=== PATIENT | female | born 1945 | race Caucasian/White ===

== ENCOUNTER → 2016-10-02 | Outpatient (CLI) | payer BC ==
[~2016-10-02] MED LIST: CETI10TA84 PO; CODCAP PO; COLE1TAB5 PO; FERR1TAB61 PO; FLNIN/ NAE; IMD/2 PO; MULT-506 PO; NAPR-1169 PO; OFLO0.3S OP; OFLO0.3S4 OPR; PRAV20TA PO; PRED1SUS3; PRED1SUS3 OPR
--- NOTE | 2016-10-02 16:11 | MAMMOGRAPHY REPORT ---
BILATERAL DIGITAL SCREENING MAMMOGRAM WITH CAD: 10/02/2016 CLINICAL HISTORY: Routine screening. Patient has no complaints. TECHNIQUE: Current study was also evaluated with a Computer Aided Detection (CAD) system. Bilatera l CC and MLO views were obtained. COMPARISON: Comparison is made to exams dated: 10/01/2015 mammogram, 09/29/2014 mammogram, 09/12/2013 mammogram, 09/09/2012 mammogram, 09/08/2011 mammogram, and 09/06/2010 mammogram - [facility]. BREAST COMPOSITION: There are scattered areas of fibroglandular density in both breasts. FINDINGS: No suspicious masses, calcifications, or areas of architectural distortion are noted in e ither breast. There has been no significant interval change compared to prior exams. Small bilatera l benign-appearing masses are not significantly changed. IMPRESSION: ACR BI-RADS CATEGORY 2: BENIGN There is no mammographic evidence of malignancy. A 1 year screening mammogram is recommended. The p atient will receive written notification of the results. Approximately 10% of breast cancers are not detected with mammography. A negative mammographic repor t should not delay biopsy if a clinically suggestive mass is present. Deepthi Arenas M.D. /:10/02/2016 13:23:31 Product Builder: Mariela MCKEON(Radha)(Petrona)(WILLEM), [facility] letter sent: Normal 1/2 BI-RADS Code: ACR BI-RADS Category 2: Benign
== END | disposition home or self-care (01) ==
LOC: C.MAMM 08:55
PROVIDERS: ATTEND Obstetrics & Gynecology
DX: Z12.31 Encounter for screening mammogram for malignant neoplasm of breast (principal)

== ENCOUNTER 2016-11-25 14:27 | Emergency (ER) | payer BC ==
[~2016-11-25] VITALS: Ht 161.3 cm; Wt 80.2 kg
[~2016-11-25 14:27] MED LIST changes: -COLE1TAB5 PO; -FLNIN/ NAE; -IMD/2 PO
[2016-11-25 14:30] VITALS: Ht 161.3 cm; Wt 80.2 kg
[2016-11-25 15:18] LABS: BASO % 0.3 %; BASO ABS # 0.03 K/uL (0-0.2); COMPLETE YES; EOS % 6.8 %; HEMATOCRIT 43.6 % (37-47); IG% 0.3 %; LYMPH % 13.1 %; LYMPH ABS # 1.52 K/uL (1.2-3.4); MEAN CELL VOLUME 89.7 fL (80-100); MEAN CORPUSCULAR HEMOGLOBIN 30.9 pg (25-34); MEAN CORPUSCULAR HGB CONC 34.4 g/dl (32-36); MEAN PLATELET VOLUME 10.4 fL (7.4-10.4); MONO % 7.4 %; NEUT % 72.1 %; PLATELET COUNT 312 K/uL (130-400); RED BLOOD COUNT 4.86 M/uL (4.2-5.4); WHITE BLOOD COUNT 11.56 K/uL (4.8-10.8)
[2016-11-25 15:27] LABS: ALT/SGPT 21 U/L (12-78); BLOOD UREA NITROGEN 20 mg/dl (7-18); CALCIUM 9.9 mg/dl (8.5-10.1); CARBON DIOXIDE 26 mmol/L (21-32); CHLORIDE 106 mmol/L (98-107); GLUCOSE 90 mg/dl (70-99); POTASSIUM 4.4 mmol/L (3.5-5.1); PROTHROMBIN TIME (PATIENT) 10.7 SECONDS (9.0-12.0); SODIUM 141 mmol/L (136-145)
[2016-11-25 15:30] LABS: ALKALINE PHOSPHATASE 96 U/L (45-117); AST/SGOT 17 U/L (15-37)
[2016-11-25] MEDS ORDERED: FLNIN/ NAE (15:39)
[2016-11-25] MEDS ORDERED: COLE1TAB5 PO (15:39)
[2016-11-25] MEDS ORDERED: IMD/2 PO (15:41)
--- NOTE | 2016-11-25 17:50 | EMERGENCY ROOM VISIT NOTE ---
ED Visit Note First contact with patient: 14:38 Patient was seen by our PA/SHEEP SORTER. I was involved in the patient's care and did evaluate the patient myself. I was involved in the care throughout the ER stay. The patient does have a mild leukocytosis and complains of some rectal bleeding. A CT of the abdomen has been ordered for the possibility of colitis or diverticulitis, this result is pending. Her disposition is not yet set.
[2016-11-25] MEDS ORDERED: OPTIRAY 320 IV PRN (18:15)
--- NOTE | 2016-11-25 18:41 | DIAGNOSTIC IMAGING REPORT ---
ABDOMEN AND PELVIS CT WITH IV AND ORAL CONTRAST CT DOSE: 539.63 mGy.cm HISTORY: Pain. Diarrhea. ongoing diarrhea; bloody stools today TECHNIQUE: Multiaxial CT images of the abdomen and pelvis were performed following the use of intravenous and oral contrast. COMPARISON STUDY: None. FINDINGS: Mild dependent bibasilar atelectasis. Several scattered hepatic cysts. Considerable cortical scarring right kidney. Several small right renal cyst. Several nonobstructing renal calcifications. Right renal extrarenal pelvis. This is in the absence of hydronephrosis. Ureters show no evidence for distention. Bowel pattern within the abdomen and pelvis is unremarkable. Appendix is normal. IMPRESSION: No acute process of the abdomen or pelvis. Cortical scarring right kidney with several right hepatic cysts. No acute process the abdomen or pelvis. Electronically signed by: Gareth Sherwood M.D. 11/25/2016 6:40 PM Dictated Date/Time: 11/25/2016 6:34 PM
[2016-11-25 19:22] VITALS: BP 150/72; PULSE 66; O2SAT 96
--- NOTE | 2016-11-28 06:35 | EMERGENCY ROOM VISIT NOTE ---
ED Visit Note First contact with patient: 14:38 Chief Complaint: Rectal bleeding. History of Present Illness: Ms. Chino is a 71-year-old white female who ambulates into the ED complaining of rectal bleeding. She was referred into her venetian blind worker because of her rectal bleeding. Historically patient reports since August, approximately 3 months ago, she has been having ongoing diarrhea. She has seen her venetian blind worker was performed multiple tests including stool cultures and colonoscopy, but has not identified the cause and she reports multiple medications have been attempted to control her stools but has been unsuccessful. Patient reports she woke up this morning and went to the bathroom and had a large episode of bright red stools. She then went approximately 3 hours later and had an additional episode. She called her venetian blind worker who encouraged her to come to the ED. Since that time she's had a no additional bowel movements. Additionally she reports she has some mild cramping pain right before her bowel movement which resolves by the time her bowel movement is over. She has no additional symptoms. She denies fevers, chills, sweats, skin eruptions, skin color changes, lightheadedness, dizziness, chest pain, shortness of breath, easy bleeding, unusual bleeding, bleeding going brushing teeth, hematuria, bleeding disorders, blood thinners, back pain, flank pain. Review of Systems: As noted above in history of present illness. At least body systems were reviewed and found to be negative as noted above. Past Medical History: As previously noted and osteoarthritis, status post cataract surgery. Current Medications: Medications Dose Route/Sig Max Daily Dose Days Date Category Imodium (Loperamide HCl) 2 Mg Cap 2 Mg PO PRN UD 11/25/16 Reported Fluticasone Propionate 120 Sprays/6000 Mcg Inha 1 [place] JYOTI PRN UD 11/25/16 Reported Colestipol Hcl 1 Gm Tab 1 Gm PO QID PRN 11/25/16 Reported Iron (Ferrous Sulfate) 45 Mg Tab 1 Tab PO QAM 10/15/15 Reported Multivitamin (Multivitamins) Tab 1 Tab PO QAM 10/15/15 Reported Cod Liver Oil 1 Cap Cap 1 Cap PO QAM 10/15/15 Reported Zyrtec (Cetirizine HCl) 10 Mg Tab 10 Mg PO QAM 10/15/15 Reported Naprosyn (Naproxen) 500 Mg Tab 500 Mg PO BID 10/15/15 Reported Allergies to Medications: Pravastatin. Social History: Patient is currently retired; she lives with her and feels safe in her home environment; she denies tobacco and alcohol use Physical Examination: Vital Signs: Date Time Temp Pulse Resp B/P Pulse Ox O2 Delivery O2 Flow Rate FiO2 11/25/16 19:22 66 18 150/72 96 Room Air 11/25/16 17:56 58 15 150/74 96 Room Air 11/25/16 16:29 64 11/25/16 16:13 64 18 149/82 97 Room Air 11/25/16 14:48 82 18 141/90 96 Room Air GENERAL: 71-year-old female in no acute distress, nontoxic-appearing, afebrile and hemodynamically stable. NEUROLOGICAL: Awake, alert and oriented to person, place and time. Answering questions appropriately and following commands. Normal gait. Good hand eye coordination. No focal motor sensory deficits. SKIN: Warm, dry and pink. No soft tissue eruptions or trauma noted. HEENT: Atraumatic and normocephalic. PERRL. Sclera white and conjunctiva pink. No drainage from naris. Oral cavity moist and pink. Pharynx is nonerythematous or edematous. Speech normal. No lymphadenopathy. Trachea midline. No jugular venous distention. BACK: No tenderness over the bony spine. No CVA tenderness. THORAX: Lungs sounds are clear to auscultation and equal bilaterally with symmetrical chest wall. No wheezing, rales or rhonchi. No crepitus, tenderness , subcutaneous air or deformities noted. HEART: Regular rate and rhythm. No gallops, rubs or murmurs are appreciated. ABDOMEN: Flat, soft and nontender. Positive bowel sounds in all quadrants. No guarding, rigidity or organomegaly. RECTAL: 2 hemorrhoids at the 10 and 4 o'clock position without bleeding. Normal rectal tone. No palpable rectal masses. Grossly positive for bright red blood. Guaiac positive. EXTREMITIES: Moves all extremities well on command and with purpose. All distal neurovascular statuses are intact and equal bilaterally. No calf tenderness or cords. ED Course: Patient is assessed as noted above. Laboratory Testing: Test 11/25/16 14:55 Range/Units White Blood Count 11.56 4.8-10.8 K/uL Red Blood Count 4.86 4.2-5.4 M/uL Hemoglobin 15.0 12.0-16.0 g/dL Hematocrit 43.6 37-47 % Mean Corpuscular Volume 89.7 80-100 fL Mean Corpuscular Hemoglobin 30.9 25-34 pg Mean Corpuscular Hemoglobin Concent 34.4 32-36 g/dl Platelet Count 312 130-400 K/uL Mean Platelet Volume 10.4 7.4-10.4 fL Neutrophils (%) (Auto) 72.1 % Lymphocytes (%) (Auto) 13.1 % Monocytes (%) (Auto) 7.4 % Eosinophils (%) (Auto) 6.8 % Basophils (%) (Auto) 0.3 % Neutrophils # (Auto) 8.34 1.4-6.5 K/uL Lymphocytes # (Auto) 1.52 1.2-3.4 K/uL Monocytes # (Auto) 0.85 0.11-0.59 K/uL Eosinophils # (Auto) 0.79 0-0.5 K/uL Basophils # (Auto) 0.03 0-0.2 K/uL RDW Standard Deviation 41.8 36.4-46.3 fL RDW Coefficient of Variation 12.8 11.5-14.5 % Immature Granulocyte % (Auto) 0.3 % Immature Granulocyte # (Auto) 0.03 0.00-0.02 K/uL Prothrombin Time 10.7 9.0-12.0 SECONDS Prothromb Time International Ratio 1.0 0.9-1.1 Activated Partial Thromboplast Time 25.7 21.0-31.0 SECONDS Partial Thromboplastin Ratio 1.0 Sodium Level 141 136-145 mmol/L Potassium Level 4.4 3.5-5.1 mmol/L Chloride Level 106 98-107 mmol/L Carbon Dioxide Level 26 21-32 mmol/L Anion Gap 9.0 3-11 mmol/L Blood Urea Nitrogen 20 7-18 mg/dl Creatinine 1.10 0.60-1.20 mg/dl Est Creatinine Clear Calc Drug Dose 48.9 ml/min Estimated GFR () 59.3 Estimated GFR (Non- 51.2 BUN/Creatinine Ratio 18.0 10-20 Random Glucose 90 70-99 mg/dl Calcium Level 9.9 8.5-10.1 mg/dl Total Bilirubin 0.3 0.2-1 mg/dl Direct Bilirubin < 0.1 0-0.2 mg/dl Aspartate Amino Transf (AST/SGOT) 17 15-37 U/L Alanine Aminotransferase (ALT/SGPT) 21 12-78 U/L Alkaline Phosphatase 96 45-117 U/L Total Protein 7.3 6.4-8.2 gm/dl Albumin 4.0 3.4-5.0 gm/dl Lipase 219 73-393 U/L Abdominal/Pelvic CT: Was reviewed by myself and read by the radiologist and shows no acute process within the abdomen or pelvis; cortical scarring of the right kidney with several right hepatic cysts. Patient was reassessed multiple times during her stay in the emergency department. Patient's case was reviewed with Dr. Tavarez; he independently assessed the patient we agreed on diagnostic approach, treatment, disposition and plan. Lengthy conversation with the patient about her bleeding and her diarrhea; I did review the case with case management and they indicated that she did meet criteria for a observation stay. After our conversation elected to go home and contact her venetian blind worker in the morning for follow-up and care. Patient was educated about tonight's findings and instructed on her treatment plan; she verbalized understanding and agreement with this plan. Clinical Impression: Bright red blood per rectum. Decision-Making: Initially I considered hemorrhoids, enteritis, diverticulitis, rectal cancer, intussusception and other causes. Disposition: Patient discharged home in stable condition; prior to departure she was reassessed and remained pain-free and had no additional bloody stools in the department. Plan: Hold your Naprosyn until tomorrow morning when you can speak to your venetian blind worker. Call your venetian blind worker tomorrow morning and inform them of today's ED visit and request follow-up care and treatment. Return to the ED for worsening rectal bleeding, passage of large clots, black/ tarry stools, lightheadedness, fevers, abdominal pain or any new/concerning symptoms.
== END 2016-11-25 19:33 | disposition home or self-care (01) ==
LOC: C.EDB 14:28 → C.EDA 19:33
DX: K62.5 Hemorrhage of anus and rectum (principal)

== ENCOUNTER → 2017-02-13 | Outpatient (CLI) | payer BC ==
[~2017-02-13] MED LIST changes: -CODCAP PO; +CODCAP4 PO; +COLE1TAB5 PO; +FLNIN/ NAE; +IMD/2 PO; -OFLO0.3S OP; -OFLO0.3S4 OPR; -PRAV20TA PO; -PRED1SUS3; -PRED1SUS3 OPR
== END | disposition home or self-care (01) ==
LOC: C.PAPS 11:17
PROVIDERS: ATTEND Obstetrics & Gynecology
DX: Z01.419 Encounter for gynecological examination (general) (routine) without abnormal findings (principal)

== ENCOUNTER → 2017-02-20 | Outpatient (CLI) | payer BC | END | disposition home or self-care (01) | LOC: C.PATHSPEC 10:57 | PROVIDERS: ATTEND Obstetrics & Gynecology | DX: N90.89 Other specified noninflammatory disorders of vulva and perineum (principal) ==

== ENCOUNTER → 2017-03-03 | Outpatient (CLI) | payer BC ==
--- NOTE | 2017-03-03 13:11 | DIAGNOSTIC IMAGING REPORT ---
CHEST 2 VIEWS ROUTINE CLINICAL HISTORY: Preoperative evaluation. COMPARISON STUDY: Chest radiograph March 01, 2013. FINDINGS: Lung volumes are normal. There is no pneumothorax or pleural effusion. Mild left basilar opacity suggests atelectasis. Cardiac size is normal. Mediastinal contours are normal. There is no evidence of pulmonary edema. The appearance of the chest is unchanged. IMPRESSION: 1. No acute cardiopulmonary findings. 2. No change in mild left basilar opacity suggestive of atelectasis. Electronically signed by: Donavan Posada M.D. 03/03/2017 1:10 PM Dictated Date/Time: 03/03/2017 1:09 PM
[2017-03-03 13:31] LABS: HEMATOCRIT 44.2 % (37-47); MEAN CELL VOLUME 89.7 fL (80-100); MEAN CORPUSCULAR HEMOGLOBIN 29.4 pg (25-34); MEAN CORPUSCULAR HGB CONC 32.8 g/dl (32-36); MEAN PLATELET VOLUME 9.8 fL (7.4-10.4); PLATELET COUNT 316 K/uL (130-400); RED BLOOD COUNT 4.93 M/uL (4.2-5.4); WHITE BLOOD COUNT 7.06 K/uL (4.8-10.8)
[2017-03-03 13:51] LABS: ALT/SGPT 59 U/L (12-78); BLOOD UREA NITROGEN 16 mg/dl (7-18); BUN/CREATININE RATIO 15.7 (10-20); CARBON DIOXIDE 24 mmol/L (21-32); CHLORIDE 105 mmol/L (98-107); GLUCOSE 94 mg/dl (70-99); POTASSIUM 4.3 mmol/L (3.5-5.1); SODIUM 139 mmol/L (136-145)
[2017-03-03 13:54] LABS: ALB/GLOB RATIO 1.1 (0.9-2); ALKALINE PHOSPHATASE 83 U/L (45-117); AST/SGOT 27 U/L (15-37)
[2017-03-03 13:55] LABS: CALCIUM 9.5 mg/dl (8.5-10.1)
== END | disposition home or self-care (01) ==
LOC: C.LAB 12:45
PROVIDERS: ATTEND Obstetrics & Gynecology Gynecologic Oncology
DX: Z01.818 Encounter for other preprocedural examination (principal); N90.3 Dysplasia of vulva, unspecified

== ENCOUNTER → 2017-05-26 | Outpatient (CLI) | payer BC ==
[~2017-05-26] MED LIST changes: +CODCAP PO; -CODCAP4 PO
--- NOTE | 2017-05-26 09:52 | DIAGNOSTIC IMAGING REPORT ---
ULTRASOUND OF THE THYROID GLAND CLINICAL HISTORY: Thyroid nodule. COMPARISON STUDY: Thyroid ultrasound dated 12/24/2015 and 01/02/2014 TECHNIQUE: Real-time, grayscale, and color flow sonography of the thyroid gland is performed utilizing a high-frequency linear transducer. Images are reviewed in the transverse and longitudinal planes. FINDINGS: Right lobe: The right lobe of the thyroid gland is normal in size and homogeneous in echotexture, measuring 4.2 x 1.7 x 1.3 cm. Left lobe: The left lobe of the thyroid gland is normal in size and homogeneous in echotexture, measuring 5.2 x 1.3 x 1.5 cm. An exophytic isoechoic nodule in the lower pole measures 1.3 x 1.2 x 1.0 (previously measured 1.2 x 1.2 x 1.2 cm). Isthmus: The thyroid isthmus is normal in appearance and measures 0.2 cm in AP diameter. IMPRESSION: 1. The thyroid gland is normal in size and echotexture. 2. Unchanged appearance of an exophytic isoechoic nodule arising from the left lower pole as compared to prior studies. Electronically signed by: Kristofer Vines M.D. 05/26/2017 9:50 AM Dictated Date/Time: 05/26/2017 9:47 AM
== END | disposition home or self-care (01) ==
LOC: C.ULTR 09:18
PROVIDERS: ATTEND Family Medicine
DX: E04.1 Nontoxic single thyroid nodule (principal)

== ENCOUNTER → 2017-10-05 | Outpatient (CLI) | payer BC ==
[~2017-10-05] MED LIST changes: -CODCAP PO; +CODCAP4 PO
--- NOTE | 2017-10-05 14:47 | MAMMOGRAPHY REPORT ---
BILATERAL DIGITAL SCREENING MAMMOGRAM TOMOSYNTHESIS WITH CAD: 10/05/2017 CLINICAL HISTORY: Routine screening. Patient has no complaints. TECHNIQUE: Breast tomosynthesis in addition to standard 2D mammography was performed. Current study was also evaluated with a Computer Aided Detection (CAD) system. COMPARISON: Comparison is made to exams dated: 10/02/2016 mammogram, 10/01/2015 mammogram, 09/29/2014 ma mmogram, 09/12/2013 mammogram, 09/09/2012 mammogram, and 09/08/2011 mammogram - [facility]. BREAST COMPOSITION: There are scattered areas of fibroglandular density in both breasts. FINDINGS: There are decreasing circumscribed masses scattered in both breasts, likely representing be nign fluctuating cysts. No new suspicious mass, architectural distortion, asymmetry or cluster of ne w, suspicious microcalcifications is seen. IMPRESSION: ACR BI-RADS CATEGORY 1: NEGATIVE There is no mammographic evidence of malignancy. A 1 year screening mammogram is recommended. The pa tient will receive written notification of the results. Approximately 10% of breast cancers are not detected with mammography. A negative mammographic report should not delay biopsy if a clinically suggestive mass is present. Jailyn Figueroa M.D. ay/:10/05/2017 09:23:33 Taco Maker: Jennifer Patel, [facility] letter sent: Normal 1/2 BI-RADS Code: ACR BI-RADS Category 1: Negative
== END | disposition home or self-care (01) ==
LOC: C.MAMM 09:06
PROVIDERS: ATTEND Obstetrics & Gynecology
DX: Z12.31 Encounter for screening mammogram for malignant neoplasm of breast (principal)